=== PATIENT | female | born 1965 | race Hispanic/Latino ===

== ENCOUNTER 2019-05-14 16:32 | Emergency (ER) | payer OTHER ==
[2019-05-14] MEDS ORDERED: DIAZEPAM 2 MG TAB ONE (16:52)
[2019-05-14] MEDS ORDERED: ORPHENADRINE CITRATE 30 MG/ML ML ONE (17:27)
[2019-05-14 17:58] LABS: CREATININE 0.9 mg/dL (0.5-1.5); POTASSIUM 3.7 mmol/L (3.5-5.1)
[2019-05-14 18:03] LABS: ALBUMIN 4.2 g/dL (3.5-5.0); BILIRUBIN,TOTAL 0.5 mg/dL (0.2-1.0); TOTAL PROTEIN, SERUM 7.8 g/dL (6.0-8.3)
== END 2019-05-14 18:29 | disposition home or self-care (01) ==
LOC: EDH 16:32
DX: G24.3 Spasmodic torticollis (principal); I10 Essential (primary) hypertension
CPT/HCPCS: 36415; 80053; 96372; 99284; J2360

== ENCOUNTER 2023-05-17 14:34 | Emergency (ER) | payer BC, OTHER ==
[~2023-05-17] VITALS: Ht 165.1 cm; Wt 79.4 kg
[2023-05-17] MEDS ORDERED: 0.9%NACL 1000ML 1,000 ML IV ONE (18:30)
[2023-05-17 19:00] LABS: CREATININE 0.7 mg/dL (0.5-1.5)
[2023-05-17 19:38] LABS: BASOPHILS # (AUTO) 0.02 K/uL (0.00-0.20); BASOPHILS % (AUTO) 0.4 % (0.0-5.0); EOSINOPHILS # (AUTO) 0.14 K/uL (0.00-0.70); EOSINOPHILS % (AUTO) 2.8 % (0.0-8.0); IMMATURE GRANULOCYTE ABSOLUTE 0.02 K/uL (0-1); LYMPHOCYTES # (AUTO) 0.9 K/uL (1.0-4.8); LYMPHOCYTES % (AUTO) 18.3 % (21.0-51.0); MEAN CORPUSCULAR HEMOGLOBIN 31.8 pg (27.0-33.0); MEAN CORPUSCULAR HGB CONC 34.5 g/dL (32.0-36.0); MEAN CORPUSCULAR VOLUME 92.1 fL (79-99); MONOCYTES # (AUTO) 0.4 K/uL (0.1-1.0); MONOCYTES % (AUTO) 8.9 % (3.0-13.0); NEUTROPHILS # (AUTO) 3.4 K/uL (1.8-7.7); NEUTROPHILS % (AUTO) 69.2 % (40.0-77.0); PLATELET COUNT (AUTO) 375 K/uL (130-400); RED BLOOD CELL COUNT(AUTO) 4.56 MIL/uL (4.00-5.50); RED CELL DISTRIBUTION WIDTH 14.3 % (11.0-15.5); WHITE BLOOD COUNT (AUTO) 4.9 K/uL (4.8-10.8)
[2023-05-17] MEDS ORDERED: GADOTERATE MEGLUMINE 10 MMOL/20 ML VIAL IV ONE (20:10)
[2023-05-17] MEDS ORDERED: LORAZEPAM 2 MG/ML 1 ML VIAL IVP ONE (20:30)
[2023-05-17 21:55] VITALS: BP 178/107; PULSE 77; RESP 18; O2SAT 98
[2023-05-17] MEDS ORDERED: ACET-2079 PO (22:25)
[2023-05-17] MEDS ORDERED: METH4TAB3 PO (22:25)
== END 2023-05-17 22:34 | disposition home or self-care (01) ==
LOC: EDH 14:34
DX: R53.1 Weakness (principal); R20.2 Paresthesia of skin; I10 Essential (primary) hypertension
CPT/HCPCS: 99285; 72156; 96367; 96374; 72125; 80048; 85025; 36415; J7030; J2060; A9575

== ENCOUNTER 2023-07-05 05:53 | Day surgery (SDC) | payer BC ==
[2023-07-04 11:34] LABS: BASOPHILS # (AUTO) 0.02 K/uL (0.00-0.20); BASOPHILS % (AUTO) 0.3 % (0.0-5.0); EOSINOPHILS # (AUTO) 0.03 K/uL (0.00-0.70); EOSINOPHILS % (AUTO) 0.4 % (0.0-8.0); HEMATOCRIT 40.9 % (36-48); IMMATURE GRANULOCYTE ABSOLUTE 0.08 K/uL (0-1); LYMPHOCYTES # (AUTO) 0.8 K/uL (1.0-4.8); LYMPHOCYTES % (AUTO) 10.8 % (21.0-51.0); MEAN CORPUSCULAR HEMOGLOBIN 32.2 pg (27.0-33.0); MEAN CORPUSCULAR HGB CONC 34.2 g/dL (32.0-36.0); MONOCYTES # (AUTO) 0.8 K/uL (0.1-1.0); MONOCYTES % (AUTO) 11.1 % (3.0-13.0); NEUTROPHILS # (AUTO) 5.4 K/uL (1.8-7.7); NEUTROPHILS % (AUTO) 76.3 % (40.0-77.0); PLATELET COUNT (AUTO) 324 K/uL (130-400); RED BLOOD CELL COUNT(AUTO) 4.35 MIL/uL (4.00-5.50); RED CELL DISTRIBUTION WIDTH 14.2 % (11.0-15.5)
[2023-07-04 11:42] LABS: CREATININE 0.7 mg/dL (0.5-1.5); POTASSIUM 3.9 mmol/L (3.5-5.1)
[2023-07-04 11:54] LABS: INR < 0.93 (0.85-1.15); PROTHROMBIN TIME 10.8 SEC (9.6-11.6)
[2023-07-04 11:55] LABS: PARTIAL THROMBOPLASTIN TIME 29.5 SEC (26.3-35.5)
[2023-07-04 12:09] VITALS: BP 183/100; PULSE 81; RESP 17
[~2023-07-05] VITALS: Ht 165.1 cm; Wt 81.4 kg
[2023-07-05] VITALS (12 sets, daily range): BP systolic 114–133; BP diastolic 65–93; PULSE 68–81; RESP 15–19
[~2023-07-05 05:53] MED LIST: FAMO-136 PO; HYDR25TA PO; LOSA50TA64 PO; PREG75CA76 PO
[2023-07-05] MEDS ORDERED: CEFAZOLIN SODIUM 2 GM VIAL ONE (06:14)
[2023-07-05] MEDS ORDERED: MIDAZOLAM HCL 1 MG/ML 2ML VIAL ONE ×2 (07:11→09:31)
[2023-07-05] MEDS ORDERED: FENTANYL CITRATE PF 50 MCG/1 ML 2ML VIAL ONE ×2 (07:12→09:22)
[2023-07-05] MEDS ORDERED: ONDANSETRON 4MG INJ ONE (07:12)
[2023-07-05] MEDS ORDERED: LIDOCAINE HCL-MPF 0.5% 50ML VIAL IJ ONE (07:13)
[2023-07-05] MEDS: LACTATED RINGERS 1000ML 1,000 ML IV ONE ×2 (09:40→09:42)
== END 2023-07-05 11:00 | disposition home or self-care (01) ==
LOC: DAH 05:53
PROVIDERS: ATTEND Neurological Surgery
DX: G56.01 Carpal tunnel syndrome, right upper limb (principal); Z20.822 Contact with and (suspected) exposure to COVID-19; I10 Essential (primary) hypertension; K21.9 Gastro-esophageal reflux disease without esophagitis; Z98.1 Arthrodesis status; Z79.899 Other long term (current) drug therapy; Z79.01 Long term (current) use of anticoagulants
CPT/HCPCS: 87426; 84702; 36415; 80048; 85025; 85730; 85610; 64721; A6260; A4663; J7120; J3010 ×2; J2250 ×2; J2405; J3490; J0690; A4215; A4223; A4222; A4221; A4510; A4600

== ENCOUNTER 2023-08-02 05:55 | Day surgery (SDC) | payer BC ==
[2023-08-01 11:00] VITALS: BP 148/91; PULSE 71; RESP 19
[2023-08-01 11:10] LABS: BASOPHILS # (AUTO) 0.02 K/uL (0.00-0.20); BASOPHILS % (AUTO) 0.4 % (0.0-5.0); EOSINOPHILS # (AUTO) 0.03 K/uL (0.00-0.70); EOSINOPHILS % (AUTO) 0.6 % (0.0-8.0); HEMATOCRIT 40.5 % (36-48); IMMATURE GRANULOCYTE ABSOLUTE 0.07 K/uL (0-1); LYMPHOCYTES # (AUTO) 0.9 K/uL (1.0-4.8); LYMPHOCYTES % (AUTO) 19.8 % (21.0-51.0); MEAN CORPUSCULAR HEMOGLOBIN 32.3 pg (27.0-33.0); MEAN CORPUSCULAR HGB CONC 34.3 g/dL (32.0-36.0); MEAN CORPUSCULAR VOLUME 94.2 fL (79-99); MONOCYTES # (AUTO) 0.7 K/uL (0.1-1.0); MONOCYTES % (AUTO) 15.3 % (3.0-13.0); NEUTROPHILS # (AUTO) 2.9 K/uL (1.8-7.7); NEUTROPHILS % (AUTO) 62.4 % (40.0-77.0); PLATELET COUNT (AUTO) 300 K/uL (130-400); RED CELL DISTRIBUTION WIDTH 13.7 % (11.0-15.5); WHITE BLOOD COUNT (AUTO) 4.6 K/uL (4.8-10.8)
[2023-08-02] VITALS (12 sets, daily range): BP systolic 119–137; BP diastolic 64–83; PULSE 73–83; RESP 15–20
[~2023-08-02] VITALS: Ht 165.1 cm; Wt 82.4 kg
[2023-08-02] MEDS ORDERED: LACTATED RINGERS 1000ML 1,000 ML IV ONE (06:09)
[2023-08-02] MEDS ORDERED: CEFAZOLIN SODIUM 2 GM VIAL ONE (06:09)
[2023-08-02] MEDS ORDERED: MIDAZOLAM HCL 1 MG/ML 2ML VIAL ONE (08:31)
[2023-08-02] MEDS ORDERED: PROPOFOL 10 MG/ML 20ML VIAL IV ONE ×2 (08:31→09:13)
[2023-08-02] MEDS ORDERED: FENTANYL CITRATE PF 50 MCG/1 ML 2ML VIAL ONE ×3 (08:31→09:19)
[2023-08-02] MEDS ORDERED: LIDOCAINE HCL-MPF 0.5% 50ML VIAL IJ ONE (08:33)
[2023-08-02] MEDS ORDERED: KETOROLAC 30MG VIAL (30MG/ML) ONE (08:42)
[2023-08-02] MEDS ORDERED: CEFAZOLIN SODIUM 2 GM VIAL IVPB ONE (08:50)
[2023-08-02] MEDS ORDERED: ONDANSETRON 4MG INJ ONE (09:52)
[2023-08-02] MEDS ORDERED: MEPERIDINE-PF 25 MG/ML SYG ONE (09:52)
== END 2023-08-02 10:50 | disposition home or self-care (01) ==
LOC: DAH 05:55
PROVIDERS: ATTEND Neurological Surgery
DX: G56.02 Carpal tunnel syndrome, left upper limb (principal); I10 Essential (primary) hypertension; Z79.899 Other long term (current) drug therapy; Z79.01 Long term (current) use of anticoagulants; Z98.1 Arthrodesis status
CPT/HCPCS: 84703; 85025; 36415; 64721; A4663; J7120; J3010 ×3; J2250; J2704 ×2; J2405; J1885; J2175; J3490; J0690 ×2; A4215; A4223; A4222; A4221; A4216

== ENCOUNTER 2023-08-16 11:00 | Observation (INO) | payer BC ==
[~2023-08-16] VITALS: Ht 165.1 cm; Wt 81.4 kg
[2023-08-16 10:15] LABS: BASOPHILS # (AUTO) 0.01 K/uL (0.00-0.20); BASOPHILS % (AUTO) 0.3 % (0.0-5.0); EOSINOPHILS # (AUTO) 0.05 K/uL (0.00-0.70); EOSINOPHILS % (AUTO) 1.7 % (0.0-8.0); HEMATOCRIT 41.9 % (36-48); IMMATURE GRANULOCYTE ABSOLUTE 0.01 K/uL (0-1); LYMPHOCYTES # (AUTO) 0.6 K/uL (1.0-4.8); LYMPHOCYTES % (AUTO) 18.9 % (21.0-51.0); MEAN CORPUSCULAR HEMOGLOBIN 31.8 pg (27.0-33.0); MEAN CORPUSCULAR HGB CONC 34.6 g/dL (32.0-36.0); MEAN CORPUSCULAR VOLUME 91.9 fL (79-99); MONOCYTES # (AUTO) 0.5 K/uL (0.1-1.0); MONOCYTES % (AUTO) 18.6 % (3.0-13.0); NEUTROPHILS # (AUTO) 1.8 K/uL (1.8-7.7); NEUTROPHILS % (AUTO) 60.2 % (40.0-77.0); PLATELET COUNT (AUTO) 311 K/uL (130-400); RED BLOOD CELL COUNT(AUTO) 4.56 MIL/uL (4.00-5.50); WHITE BLOOD COUNT (AUTO) 2.9 K/uL (4.8-10.8)
[~2023-08-16 11:00] MED LIST changes: -PREG75CA76 PO
[2023-08-16 12:15] LABS: BASOPHILS % (MANUAL) 2 % (0-2); EOSINOPHILS % (MANUAL) 2 % (1-6); LYMPHOCYTES % (MANUAL) 21 % (22-44); MONOCYTES % (MANUAL) 13 % (2-9); MYELOCYTES % 1 % (0-0); SEGMENTED NEUTROPHILS % 61 % (40-70); TOTAL CELLS COUNTED 100
[2023-08-16 12:16] LABS: PLATELET MORPHOLOGY COMMENT ADEQUATE
[2023-08-23] VITALS (17 sets, daily range): BP systolic 116–141; BP diastolic 71–89; PULSE 70–90; RESP 10–20
[2023-08-23] MEDS ORDERED: CEFAZOLIN SODIUM 2 GM VIAL ONE (07:48)
[2023-08-23] MEDS ORDERED: LACTATED RINGERS 1000ML 1,000 ML IV ONE (07:48)
[2023-08-23] MEDS ORDERED: LIDOCAINE PF 100MG/5ML (2%) SYRINGE 5ML ONE (07:53)
[2023-08-23] MEDS ORDERED: SUCCINYLCHOLINE CHLORIDE 20 MG/ML 10 ML VIAL ONE (07:53)
[2023-08-23] MEDS ORDERED: ROCURONIUM 10MG/1ML SYR 10 MG/ML ML ONE (07:54)
[2023-08-23] MEDS ORDERED: ONDANSETRON 4MG INJ ONE ×2 (07:54→11:00)
[2023-08-23] MEDS ORDERED: MIDAZOLAM HCL 1 MG/ML 2ML VIAL ONE (07:54)
[2023-08-23] MEDS ORDERED: GLYCOPYRROLATE 1 MG/5 ML SYRINGE ONE (07:54)
[2023-08-23] MEDS ORDERED: DEXAMETHASONE SOD PHOSPHATE 10MG/ML 1ML VIAL ONE (07:54)
[2023-08-23] MEDS ORDERED: PROPOFOL 10 MG/ML 20ML VIAL IV ONE (07:54)
[2023-08-23] MEDS ORDERED: NEOSTIGMINE 5MG/5ML SYR IV ONE (07:54)
[2023-08-23] MEDS ORDERED: FENTANYL CITRATE PF 50 MCG/1 ML 2ML VIAL ONE ×2 (07:55→09:36)
[2023-08-23 08:18] LABS: CREATININE 0.6 mg/dL (0.5-1.5)
[2023-08-23] MEDS ORDERED: ARTIFICIAL TEARS 3.5 GM OINTMENT ONE (09:28)
[2023-08-23] MEDS ORDERED: LIDOCAINE 1%-EPI 1:100,000 20 ML VIAL ONE (09:40)
[2023-08-23] MEDS ORDERED: THROMBIN-JMI 5000 UNIT/VIAL TP ONE (09:40)
[2023-08-23] MEDS ORDERED: THROMBIN 20000 UNITS/VIAL POWDER TP ONE (09:43)
[2023-08-23] MEDS ORDERED: LIDOCAINE 1%-EPI 1:100,000 20 ML VIAL IJ ONE (09:43)
[2023-08-23] MEDS ORDERED: MEPERIDINE-PF 25 MG/ML SYG ONE (11:00)
== END 2023-08-23 12:30 | disposition home or self-care (01) ==
LOC: EDSTATUS 11:00 → DAHIP 08-23 05:51
PROVIDERS: ADMIT Neurological Surgery; ATTEND Neurological Surgery
DX: T84.226A Displacement of internal fixation device of vertebrae, initial encounter (principal); M54.2 Cervicalgia; E66.9 Obesity, unspecified; Z68.29 Body mass index [BMI] 29.0-29.9, adult; Y92.89 Other specified places as the place of occurrence of the external cause
CPT/HCPCS: 80051; 84702; 85025; 36415 ×2; 71045; 93005; 20680; 80048; 81025; A6260; G0378 ×5; G0379; A4663; J7030; A4344; J7120; J3010 ×2; J3490 ×5; J1100; J2710; J0330; J2001; J2250; J2704; J2405 ×2; J2175; J0690; A4649 ×2; A4215; A4223; A4222; A4221; A4600; A4510